=== PATIENT | female | born 1970 | race Caucasian/White ===

== ENCOUNTER 2019-03-08 17:55 | Emergency (ER) | payer OTHER, MEDICAID ==
[2019-03-08] MEDS ORDERED: IBUPROFEN 600 MG TABLET PO STA (18:41)
[2019-03-08] MEDS ORDERED: ACETAMINOPHEN 325 MG TABLET PO STA (18:41)
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
[2019-03-08 19:43] VITALS: BP 118/78
== END 2019-03-08 19:43 | disposition home or self-care (01) ==
LOC: ED 17:55
DX: S16.1XXA Strain of muscle, fascia and tendon at neck level, initial encounter (principal); S09.90XA Unspecified injury of head, initial encounter; R07.89 Other chest pain; M79.652 Pain in left thigh; M79.651 Pain in right thigh; M25.559 Pain in unspecified hip; M25.519 Pain in unspecified shoulder; V43.62XA Car passenger injured in collision with other type car in traffic accident, initial encounter; Y92.410 Unspecified street and highway as the place of occurrence of the external cause; M79.7 Fibromyalgia
CPT/HCPCS: 71046; 99283; 99284; A9270

== ENCOUNTER 2019-03-26 22:22 | Emergency (ER) | payer OTHER, MEDICAID ==
[2019-03-26 22:34] VITALS: BP 134/84
[2019-03-26] MEDS ORDERED: ONDANSETRON ODT 4 MG TABLET TL STA (23:01)
[2019-03-26] MEDS ORDERED: traMADol 50 MG TABLET PO STA (23:01)
[2019-03-26] MEDS ORDERED: CYCLOBENZAPRINE 10 MG TABLET PO STA (23:01)
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
== END 2019-03-27 00:29 | disposition home or self-care (01) ==
LOC: ED 22:22
DX: R55 Syncope and collapse (principal); S06.0X1A Concussion with loss of consciousness of 30 minutes or less, initial encounter; S16.1XXA Strain of muscle, fascia and tendon at neck level, initial encounter; V89.2XXA Person injured in unspecified motor-vehicle accident, traffic, initial encounter
CPT/HCPCS: 70450; 93005; 99284; A9270; Q0162